=== PATIENT | female | born 1950 | race African-American/Black ===

== ENCOUNTER 2024-01-10 21:22 | Inpatient (IN) | payer OTHER, MEDICAID ==
[~2024-01-10] VITALS: Ht 160 cm; Wt 65.8 kg
[2024-01-10] MEDS: VANCOMYCIN 1G PREMIX 200 ML IV ONE (23:00)
[2024-01-10 23:26] LABS: BASOPHILS % 0.5 % (0.0-2.0); EOSINOPHILS % 1.1 % (0.0-5.0); HEMATOCRIT. 33.6 % (36.0-48.0); HEMOGLOBIN. 11.2 g/dL (12.0-16.0); LYMPHOCYTES % 16.1 % (20.0-50.0); MEAN CORPUSCULAR HEMOGLOBIN 31.3 pg (28.0-32.0); MEAN CORPUSCULAR HGB CONC 33.3 g/dL (31.0-37.0); MEAN CORPUSCULAR VOLUME 93.8 fL (81.0-99.0); MEAN PLATELET VOLUME 8.7 fl (7.4-10.4); MONOCYTES % 9.4 % (2.0-8.0); NEUTROPHILS % 72.9 % (40.0-76.0); PLATELET 262 x1000/uL (130-400); RED BLOOD CELL COUNT 3.58 mill/uL (4.2-5.4); RED CELL DISTRIBUTION WIDTH 13.5 % (11.6-14.6); WHITE BLOOD COUNT 14.9 x1000/uL (4.5-11.0)
[2024-01-10 23:29] LABS: CARBON DIOXIDE 30 mEq/L (21-32); CHLORIDE 106 mEq/L (98-107); POTASSIUM 3.8 mEq/L (3.5-5.1); SODIUM 141 mEq/L (136-145)
[2024-01-10 23:30] LABS: CALCIUM 9.9 mg/dL (8.7-10.4)
[2024-01-10] MEDS: PIPERACILLIN/TAZO 3.375G/50ML 50 ML IV ONE (23:30)
[2024-01-10] MEDS: SODIUM CHLORIDE 0.9% 1,000 ML IV ONE (23:30)
[2024-01-10 23:33] LABS: PROTHROMBIN TIME 10.7 sec (9.6-11.0)
[2024-01-10 23:34] LABS: CREATININE 0.8 mg/dL (0.6-1.0); GLUCOSE 172 mg/dL (70-105)
[2024-01-10 23:35] LABS: UREA NITROGEN BLOOD 12 mg/dL (9-23)
[2024-01-10 23:36] LABS: ALANINE AMINOTRANSFERASE 23 IU/L (10-49); ASPARTATE AMINOTRANSFERASE 21 IU/L (<34)
[2024-01-10 23:37] LABS: ALBUMIN 4.7 g/dL (3.2-4.8); BILIRUBIN TOTAL 0.5 mg/dL (0.1-1.0); PROTEIN TOTAL 7.9 g/dL (6.0-8.3)
[2024-01-11] MEDS ORDERED: METF-414 PO (11:35)
[2024-01-11] MEDS ORDERED: LISI20TA31 PO (11:35)
[2024-01-11] MEDS ORDERED: ONDANSETRON HCL 4MG/2ML INJ IV PRN ×2 (12:15→14:00)
[2024-01-11] MEDS ORDERED: DEXTROSE 50% WATER 50ML SYRINGE IV PRN (12:15)
[2024-01-11] MEDS ORDERED: CEFTRIAXONE 1GM/50ML 50 ML IV SCH (12:15)
[2024-01-11] MEDS ORDERED: PANTOPRAZOLE SODIUM 40 MG/VIAL IV SCH (12:15)
[2024-01-11] MEDS ORDERED: CLONIDINE 0.1MG TABLET PO PRN (14:00)
[2024-01-11] MEDS ORDERED: IPRATROPIUM/ALBUTEROL 0.5-3(2.5)MG/3ML NEB HHN PRN (14:00)
[2024-01-11] MEDS ORDERED: ACETAMINOPHEN 325MG TABLET PO PRN (14:00)
[2024-01-11] MEDS: LISINOPRIL 20MG TABLET PO SCH (14:04)
[2024-01-11] MEDS: PIPERACILLIN/TAZO 3.375G/50ML 50 ML IV SCH (14:04)
[2024-01-11 16:00] VITALS: BP 166/57; PULSE 87; RESP 19; TEMP 97.7
[2024-01-11 17:13] VITALS: BP 166/65; PULSE 80; RESP 18; TEMP 97.7
[2024-01-11] MEDS: BLOOD SUGAR DIAGNOSTIC STRIP TEST SCH (17:40)
[2024-01-11] MEDS: VANCOMYCIN 750MG/150ML IV SCH (17:42)
[2024-01-11] MEDS: INSULIN LISPRO 100 UNITS/ML SUBCUT SCH (17:48)
[2024-01-11] MEDS: AMLODIPINE 10MG TABLET PO SCH (17:48)
[2024-01-11 18:54] LABS: BASOPHILS % 0.4 % (0.0-2.0); EOSINOPHILS % 1.2 % (0.0-5.0); HEMATOCRIT. 31.9 % (36.0-48.0); HEMOGLOBIN. 10.6 g/dL (12.0-16.0); LYMPHOCYTES % 12.4 % (20.0-50.0); MEAN CORPUSCULAR HEMOGLOBIN 31.1 pg (28.0-32.0); MEAN CORPUSCULAR HGB CONC 33.1 g/dL (31.0-37.0); MEAN PLATELET VOLUME 8.7 fl (7.4-10.4); MONOCYTES % 7.8 % (2.0-8.0); NEUTROPHILS % 78.2 % (40.0-76.0); PLATELET 264 x1000/uL (130-400); RED CELL DISTRIBUTION WIDTH 13.5 % (11.6-14.6)
[2024-01-11 18:55] LABS: CARBON DIOXIDE 28 mEq/L (21-32); CHLORIDE 104 mEq/L (98-107); POTASSIUM 4.4 mEq/L (3.5-5.1); SODIUM 139 mEq/L (136-145)
[2024-01-11 18:56] LABS: CALCIUM 9.6 mg/dL (8.7-10.4)
[2024-01-11 19:00] LABS: CREATININE 0.9 mg/dL (0.6-1.0); GLUCOSE 159 mg/dL (70-105)
[2024-01-11 19:01] LABS: LDL CHOLESTEROL 151 mg/dL (5-100); TRIGLYCERIDE 107 mg/dL (0-150); UREA NITROGEN BLOOD 15 mg/dL (9-23)
[2024-01-11 19:02] LABS: ALANINE AMINOTRANSFERASE 19 IU/L (10-49); ALBUMIN 4.4 g/dL (3.2-4.8); ASPARTATE AMINOTRANSFERASE 16 IU/L (<34)
[2024-01-11 19:03] LABS: BILIRUBIN TOTAL 0.4 mg/dL (0.1-1.0); CHOLESTEROL 198 mg/dL (<200); HDL CHOLESTEROL 35 mg/dL (>65); PROTEIN TOTAL 7.6 g/dL (6.0-8.3)
[2024-01-11 20:00] VITALS: BP 145/56; PULSE 91; RESP 19; TEMP 97.5
[2024-01-11] MEDS: ATORVASTATIN CALCIUM 40MG TABLET PO SCH (21:23)
[2024-01-11] MEDS: CIPROFLOXACIN 0.3% OPHTH SOLN 2.5ML RIGHTEYE SCH (22:02)
[2024-01-11] MEDS: BRIMONIDINE 0.2% OPHTH DROPS 5ML RIGHTEYE SCH (22:02)
[2024-01-11] MEDS: PREDNISOLONE ACETATE 1% OPHTH DROPS 5ML RIGHTEYE SCH (22:03)
[2024-01-11] MEDS: KETOROLAC TROM 0.5% 5ML BOTTLE RIGHTEYE SCH (22:04)
[2024-01-11 22:41] LABS: CLARITY URINE CLEAR (CLEAR); COLOR URINE YELLOW (YELLOW); GLUCOSE URINE NEGATIVE (NEGATIVE); KETONES URINE NEGATIVE (NEGATIVE); LEUKOCYTE ESTERASE URINE NEGATIVE (NEGATIVE); NITRITE URINE NEGATIVE (NEGATIVE); OCCULT BLOOD URINE NEGATIVE (NEGATIVE); PH URINE 5.5 (4.5-8.0); PROTEIN URINE NEGATIVE (NEGATIVE)
[2024-01-12] VITALS: BP 147/50; PULSE 84; RESP 19; TEMP 97.7
[2024-01-12 04:00] VITALS: BP 144/55; PULSE 80; RESP 18; TEMP 97.5
[2024-01-12] MEDS: ENOXAPARIN 80MG/0.8ML SYR SUBCUT SCH (05:48)
[2024-01-12 07:24] LABS: BASOPHILS % 0.9 % (0.0-2.0); CHLORIDE 107 mEq/L (98-107); EOSINOPHILS % 1.3 % (0.0-5.0); HEMATOCRIT. 32.7 % (36.0-48.0); HEMOGLOBIN. 10.9 g/dL (12.0-16.0); LYMPHOCYTES % 20.5 % (20.0-50.0); MEAN CORPUSCULAR HGB CONC 33.3 g/dL (31.0-37.0); MEAN CORPUSCULAR VOLUME 96.1 fL (81.0-99.0); MONOCYTES % 8.2 % (2.0-8.0); NEUTROPHILS % 69.1 % (40.0-76.0); PLATELET 250 x1000/uL (130-400); POTASSIUM 3.6 mEq/L (3.5-5.1); RED CELL DISTRIBUTION WIDTH 13.6 % (11.6-14.6); SODIUM 139 mEq/L (136-145); WHITE BLOOD COUNT 11.3 x1000/uL (4.5-11.0)
[2024-01-12 07:25] LABS: CALCIUM 9.2 mg/dL (8.7-10.4); CARBON DIOXIDE 25 mEq/L (21-32)
[2024-01-12 07:30] LABS: CREATININE 0.7 mg/dL (0.6-1.0); GLUCOSE 114 mg/dL (70-105); UREA NITROGEN BLOOD 9 mg/dL (9-23)
[2024-01-12 08:00] VITALS: BP 116/48; PULSE 87; RESP 18; TEMP 97.8
[2024-01-12] MEDS: ASPIRIN 81MG TABLET PO SCH (08:51)
[2024-01-12 12:00] VITALS: BP 124/64; PULSE 96; RESP 20; TEMP 96.6
[2024-01-12] MEDS: LEVOFLOXACIN 500MG TABLET PO NR (12:06)
[2024-01-12 16:00] VITALS: BP 108/50; PULSE 98; RESP 18; TEMP 98.2
[2024-01-12 20:00] VITALS: BP 129/51; PULSE 91; RESP 20; TEMP 98.6
[2024-01-12] MEDS: SULFAMETHOXAZOLE/TRIMETHOPRIM 800/160MG TABLET PO SCH (21:49)
[2024-01-13] VITALS: BP 132/54; PULSE 84; RESP 20; TEMP 96.6
[2024-01-13 04:00] VITALS: BP 138/50; PULSE 79; RESP 20; TEMP 96.6
[2024-01-13 04:04] LABS: BASOPHILS % 0.3 % (0.0-2.0); EOSINOPHILS % 1.5 % (0.0-5.0); HEMATOCRIT. 31.5 % (36.0-48.0); HEMOGLOBIN. 10.6 g/dL (12.0-16.0); LYMPHOCYTES % 22.3 % (20.0-50.0); MEAN CORPUSCULAR HEMOGLOBIN 31.2 pg (28.0-32.0); MEAN CORPUSCULAR HGB CONC 33.8 g/dL (31.0-37.0); MEAN CORPUSCULAR VOLUME 92.3 fL (81.0-99.0); MEAN PLATELET VOLUME 8.4 fl (7.4-10.4); MONOCYTES % 3.8 % (2.0-8.0); NEUTROPHILS % 72.1 % (40.0-76.0); PLATELET 242 x1000/uL (130-400); RED BLOOD CELL COUNT 3.41 mill/uL (4.2-5.4); RED CELL DISTRIBUTION WIDTH 13.4 % (11.6-14.6); WHITE BLOOD COUNT 6.6 x1000/uL (4.5-11.0)
[2024-01-13 04:11] LABS: CHLORIDE 109 mEq/L (98-107); POTASSIUM 3.8 mEq/L (3.5-5.1); SODIUM 141 mEq/L (136-145)
[2024-01-13 04:12] LABS: CARBON DIOXIDE 25 mEq/L (21-32)
[2024-01-13 04:13] LABS: CALCIUM 8.9 mg/dL (8.7-10.4)
[2024-01-13 04:17] LABS: CREATININE 0.8 mg/dL (0.6-1.0); GLUCOSE 124 mg/dL (70-105)
[2024-01-13 04:18] LABS: UREA NITROGEN BLOOD 18 mg/dL (9-23)
[2024-01-13 04:19] LABS: VANCOMYCIN TROUGH 7.1 ug/mL (5.0-10.0)
[2024-01-13 08:00] VITALS: BP 131/49; PULSE 87; RESP 18; TEMP 97.2
[2024-01-13] MEDS ORDERED: VANCOMYCIN 750MG PREMIX 150 ML IV SCH (10:45)
[2024-01-13] MEDS: PANTOPRAZOLE SODIUM 40 MG/VIAL IV SCH (11:52)
[2024-01-13] MEDS: PIPERACILLIN/TAZO 3.375G/50ML 50 ML IV SCH (11:52)
[2024-01-13 12:00] VITALS: BP 98/45; PULSE 85; RESP 19; TEMP 97.4
[2024-01-13] MEDS: VANCOMYCIN 750MG PREMIX 150 ML IV SCH (14:47)
[2024-01-13 16:00] VITALS: BP 103/44; PULSE 85; RESP 17; TEMP 97.4
[2024-01-13 20:00] VITALS: BP 118/45; PULSE 88; RESP 18; TEMP 98.2
[2024-01-14] VITALS: BP 113/31; PULSE 83; RESP 18; TEMP 98.4
[2024-01-14] MEDS: SODIUM CHLORIDE 0.9% 1,000 ML IV SCH (00:03)
[2024-01-14 04:00] VITALS: BP 118/41; PULSE 89; RESP 18; TEMP 98.7
[2024-01-14 07:36] LABS: HEMATOCRIT 33.8 % (36.0-48.0); HEMOGLOBIN 11.2 g/dL (12.0-16.0); MEAN CORPUSCULAR HEMOGLOBIN 30.8 pg (28.0-32.0); MEAN CORPUSCULAR HGB CONC 33.2 g/dL (31.0-37.0); MEAN CORPUSCULAR VOLUME 92.8 fL (81.0-99.0); PLATELET 230 x1000/uL (130-400); RED BLOOD CELL COUNT 3.64 mill/uL (4.2-5.4); RED CELL DISTRIBUTION WIDTH 13.7 % (11.6-14.6); WHITE BLOOD COUNT 11.7 x1000/uL (4.5-11.0)
[2024-01-14 07:39] LABS: POTASSIUM 3.6 mEq/L (3.5-5.1)
[2024-01-14 07:41] LABS: CALCIUM 8.5 mg/dL (8.7-10.4)
[2024-01-14 07:45] LABS: CREATININE 1.1 mg/dL (0.6-1.0)
[2024-01-14] MEDS ORDERED: LIDOCAINE HCL/PF 2% 20MG/ML 5 ML/VIAL ONE (07:56)
[2024-01-14] MEDS ORDERED: HEPARIN 1000 UNITS/ML 10ML ONE (07:56)
[2024-01-14] MEDS ORDERED: IODIXANOL 320MG/ML 100 ML BOTTLE IV ONE ×2 (07:57→09:37)
[2024-01-14 08:00] VITALS: BP 102/55; PULSE 89; RESP 17; TEMP 98.1
[2024-01-14] MEDS ORDERED: MIDAZOLAM HCL 2 MG/2 ML VIAL ONE ×2 (08:29→11:18)
[2024-01-14] MEDS ORDERED: FENTANYL CITRATE/PF 50MCG/ML 2ML VIAL ONE ×2 (08:29→11:18)
[2024-01-14] MEDS: FAMOTIDINE 20MG/2ML VIAL IV SCH (09:00)
[2024-01-14 09:41] LABS: ERYTHROCYTE SEDIMENTATION RATE 32 mm/hr (0-30)
[2024-01-14] MEDS ORDERED: CLOPIDOGREL 75MG TABLET ONE ×2 (12:22→12:23)
[2024-01-14] MEDS ORDERED: SODIUM CHLORIDE 0.9% 1,000 ML IV SCH (15:30)
[2024-01-14 16:00] VITALS: BP 166/60; PULSE 92; RESP 18; TEMP 98.1
[2024-01-14 20:00] VITALS: BP 103/27; PULSE 98; RESP 18; TEMP 99.9
[2024-01-15] VITALS: BP 133/54; PULSE 94; RESP 18; TEMP 101.3
[2024-01-15 04:00] VITALS: BP 106/40; PULSE 93; RESP 19; TEMP 99.3
[2024-01-15] MEDS: ACETAMINOPHEN 325MG TABLET PO PRN (04:31)
[2024-01-15 06:29] LABS: HEMATOCRIT 29.3 % (36.0-48.0); HEMOGLOBIN 9.7 g/dL (12.0-16.0); MEAN CORPUSCULAR HGB CONC 33.2 g/dL (31.0-37.0); MEAN CORPUSCULAR VOLUME 93.4 fL (81.0-99.0); PLATELET 194 x1000/uL (130-400); RED BLOOD CELL COUNT 3.14 mill/uL (4.2-5.4); RED CELL DISTRIBUTION WIDTH 13.4 % (11.6-14.6); WHITE BLOOD COUNT 9.7 x1000/uL (4.5-11.0)
[2024-01-15] MEDS: DOCUSATE SODIUM 100MG CAPSULE PO PRN (06:34)
[2024-01-15 06:42] LABS: CARBON DIOXIDE 24 mEq/L (21-32); CHLORIDE 109 mEq/L (98-107); POTASSIUM 3.5 mEq/L (3.5-5.1); SODIUM 143 mEq/L (136-145)
[2024-01-15 06:48] LABS: CREATININE 0.9 mg/dL (0.6-1.0); GLUCOSE 103 mg/dL (70-105); UREA NITROGEN BLOOD 14 mg/dL (9-23)
[2024-01-15 07:29] LABS: CREATINE KINASE 364 IU/L (34-145)
[2024-01-15 08:00] VITALS: BP 114/44; PULSE 85; RESP 20; TEMP 98.1
[2024-01-15] MEDS: CLOPIDOGREL 75MG TABLET PO SCH (09:32)
[2024-01-15 12:00] VITALS: BP 138/42; PULSE 79; RESP 19; TEMP 97.7
[2024-01-15 16:00] VITALS: BP 145/46; PULSE 92; RESP 20; TEMP 97.9
[2024-01-15 20:00] VITALS: BP 114/41; PULSE 91; RESP 20; TEMP 97.9
[2024-01-16 04:00] VITALS: BP 103/59; PULSE 84; RESP 18; TEMP 98.1
[2024-01-16 07:46] LABS: CARBON DIOXIDE 23 mEq/L (21-32); CHLORIDE 110 mEq/L (98-107); POTASSIUM 3.9 mEq/L (3.5-5.1); SODIUM 141 mEq/L (136-145)
[2024-01-16 07:47] LABS: CALCIUM 9.4 mg/dL (8.7-10.4)
[2024-01-16 07:52] LABS: CREATININE 0.8 mg/dL (0.6-1.0); GLUCOSE 107 mg/dL (70-105); UREA NITROGEN BLOOD 10 mg/dL (9-23)
[2024-01-16 08:00] VITALS: BP 138/46; PULSE 83; RESP 18; TEMP 97.5
[2024-01-16 08:54] LABS: HEMATOCRIT 27.5 % (36.0-48.0); HEMOGLOBIN 9.3 g/dL (12.0-16.0); MEAN CORPUSCULAR HEMOGLOBIN 31.2 pg (28.0-32.0); MEAN CORPUSCULAR HGB CONC 33.8 g/dL (31.0-37.0); MEAN CORPUSCULAR VOLUME 92.3 fL (81.0-99.0); PLATELET 181 x1000/uL (130-400); RED BLOOD CELL COUNT 2.98 mill/uL (4.2-5.4); RED CELL DISTRIBUTION WIDTH 13.5 % (11.6-14.6); WHITE BLOOD COUNT 10.1 x1000/uL (4.5-11.0)
[2024-01-16 12:00] VITALS: BP 148/55; PULSE 84; RESP 19; TEMP 96.3
[2024-01-16] MEDS ORDERED: ASPI-1160 PO (12:40)
[2024-01-16] MEDS ORDERED: CLOP-31 PO (12:40)
[2024-01-16 16:00] VITALS: BP 120/48; PULSE 89; RESP 17; TEMP 97.5
[2024-01-16 20:00] VITALS: BP 153/54; PULSE 93; RESP 18; TEMP 97.7
[2024-01-17] VITALS: BP 143/50; PULSE 97; RESP 18; TEMP 97.6
[2024-01-17 04:00] VITALS: BP 139/49; PULSE 90; RESP 18; TEMP 97.6
[2024-01-17 08:00] VITALS: BP 118/48; PULSE 88; RESP 19; TEMP 96.3
[2024-01-17 13:28] VITALS: BP 122/49; PULSE 86; TEMP 98.1; O2SAT 99
== END 2024-01-17 15:10 | disposition home health service (06) | DRG 854 ==
LOC: ER 21:22 → 6EST 01-11 03:00 → EDBEDREQTM 01-11 03:20 → EDBEDREQ 01-11 03:20
PROVIDERS: ADMIT Internal Medicine; ATTEND Internal Medicine
PROC: 02HV33Z Insertion of Infusion Device into Superior Vena Cava, Percutaneous Approach (ICD-10-PCS; 2024-01-13)
PROC: B548ZZA Ultrasonography of Superior Vena Cava, Guidance (ICD-10-PCS; 2024-01-13)
PROC: B518ZZA Fluoroscopy of Superior Vena Cava, Guidance (ICD-10-PCS; 2024-01-13)
PROC: B41F1ZZ Fluoroscopy of Right Lower Extremity Arteries using Low Osmolar Contrast (ICD-10-PCS; principal; 2024-01-14)
PROC: 047K341 Dilation of Right Femoral Artery with Drug-eluting Intraluminal Device, using Drug-Coated Balloon, Percutaneous Approach (ICD-10-PCS; 2024-01-14)
PROC: 04CK3ZZ Extirpation of Matter from Right Femoral Artery, Percutaneous Approach (ICD-10-PCS; 2024-01-14)
PROC: 04FK3ZZ Fragmentation of Right Femoral Artery, Percutaneous Approach (ICD-10-PCS; 2024-01-14)
PROC: 047M3ZZ Dilation of Right Popliteal Artery, Percutaneous Approach (ICD-10-PCS; 2024-01-14)
DX: A41.9 Sepsis, unspecified organism (principal); E11.52 Type 2 diabetes mellitus with diabetic peripheral angiopathy with gangrene; L03.115 Cellulitis of right lower limb; I96 Gangrene, not elsewhere classified; D64.9 Anemia, unspecified; E78.5 Hyperlipidemia, unspecified; I70.221 Atherosclerosis of native arteries of extremities with rest pain, right leg; I10 Essential (primary) hypertension; Z89.512 Acquired absence of left leg below knee; Z79.02 Long term (current) use of antithrombotics/antiplatelets; Z79.82 Long term (current) use of aspirin
CPT/HCPCS: 36415; 36573; 71045; 73721; 80048; 80053; 80061; 80202; 81003; 82550; 82962; 83036; 83605; 84145; 85025; 85027; 85651; 86850; 86900; 87070; 99285; C1725; C1893; C9113; J1644; J1650; J1815; J2250; J2543; J3010; J3370; J3490; J7030; Q9967